=== PATIENT | male | born 1955 | race Caucasian/White ===

== ENCOUNTER 2018-02-22 14:51 | Emergency (ER) | payer OTHER, SELFPAY ==
[2018-02-22 14:52] VITALS: BP 146/95; PULSE 96; RESP 17; TEMP 36.5; O2SAT 100; BMI 25.2
--- NOTE | 2018-02-22 15:16 | CT_ITS ---
STUDY: CT ABDOMEN AND PELVIS WITHOUT CONTRAST REASON FOR EXAM: Male, 62 years old. Right lower quadrant pain. History of kidney stones. RADIATION DOSAGE (If Supplied By Facility): CTDIvol = ( 9.15 ) mGy, DLP = ( 486.78 ) mGycm TECHNIQUE: Transaxial images were obtained from the dome of the diaphragm to the symphysis pubis without oral contrast, and without intravenous contrast. Sagittal and coronal images were reconstructed. Individualized dose optimization techniques were used for this CT. COMPARISON: Comparison is made with prior study dated December 08, 2016. FINDINGS: The visualized lung bases are unremarkable. The visualized portions of the heart are within normal limits. Normal liver. Normal gallbladder and extrahepatic biliary system. Normal spleen. Normal pancreas. Normal bilateral adrenal glands. Mild degree of right hydronephrosis due to a recently passed 2 mm calculus at the base of the right side of the urinary bladder. This is in keeping with a recently passed calculus. Normal left kidney. Normal visualized stomach. Normal small intestine. Normal colon. There are surgical clips in the region of the appendix consistent with a prior appendectomy. Normal abdominal aorta. Normal inferior vena cava. Normal retroperitoneum. Normal urinary bladder. There is a small umbilical hernia containing fat. Small bilateral inguinal hernias containing fat. Normal osseous structures. CT/Abdomen/Pelvis without Cont IMPRESSION: Findings suggestive of a recently passed 2 mm calculus from the right ureter. The calculus is at the base of the bladder on the right side. Electronically Signed: Donald Parker MD at 15:54 EST Tel [phone], Service support ,
[2018-02-22 15:18] LABS: Absolute Lymphocyte Count 1.82 X10^3/ul (0.83-4.51); Absolute Neutrophil Count 6.3 X10^3/uL (2.0-7.7); Basophil# 0.08 X10^3/uL; Basophil% 0.9 % (0-1); Eosinophil# 0.06 X10^3/uL; Eosinophils% 0.7 % (0-5); Hematocrit 44.5 % (40-54); Hemoglobin 14.4 g/dl (13.0-16.5); Lymphocyte # 1.82 X10^3/ul (4.0); Lymphocyte % 20.4 % (19-41); Mean Corp Hgb Conc 32.4 g/gl (32-36); Mean Corpuscular Hgb 28.9 pg (27.0-32.0); Mean Corpuscular Volume 89.2 fL (80-94); Mean Platelet Vol. 9.7 fl (6.2-12.0); Monocyte# 0.65 X10^3/uL; Monocyte% 7.3 % (0-10); Neutrophil # 6.29 X10^3/uL (2.7-7.7); Neutrophil % 70.6 % (47-70); Platelet Count 294 K/mm3 (150-450); RBC Distribution Width SD 42.4 fl (35.1-43.9); Red Blood Count 4.99 M/mm3 (4.6-6.2); White Blood Count 8.9 K/mm3 (4.4-11.0)
[2018-02-22 15:19] LABS: POSITIVE COUNT NO; POSITIVE DIFFERENTIAL NO; POSITIVE MORPHOLOGY NO
[2018-02-22] MEDS: Morphine 4 MG/ML Syringe IV (15:20)
[2018-02-22] MEDS: Ondansetron 4 MG/2 ML Vial IV (15:20)
[2018-02-22] MEDS: 0.9% Normal Saline 1,000 ML 125 ML IV (15:20)
[2018-02-22] MEDS: Ketorolac 30 MG/ML Syringe IV (15:20)
[2018-02-22 15:31] LABS: Anion Gap 10 (5-15); BUN 14 mg/dL (7-18); Calcium,Total 8.3 mg/dL (8.5-10.1); Chloride 105 mmol/L (98-107); EST Glomerular Filtration Rate 55 mL/min (>60); Est Glom Filt Rate - Afr Amer 66 mL/min (>60); Estimated Creatinine Clearance 62.62 ml/min; Glucose 147 mg/dL (74-106); Potassium 3.5 mmol/L (3.5-5.1); Sodium Level 140 mmol/L (136-145)
--- NOTE | 2018-02-22 16:22 | ED.DCSUM_ITS ---
- ER Visit Summary Date of Service: 02/22/18 Chief Complaint: [Right lower quadrant pain] History of Present Illness: The patient is a 62 M [presents to the emergency department complaint of pain in his right lower abdomen and started around noon. Patient states that, came on gradually and progressively worsened. Patient now complains of pain is 8 out of 10. Patient denies any nausea or vomiting. He denies urinary symptoms. He denies any fever. Patient states the pain reminds him of the last time he passed a kidney stone.] Physical Examination: [HEENT-PERRLA, EOMI. Cranial nerves II through XII grossly intact. TMs clear. Mucous membranes moist. No adenopathy. Cardiovascular-regular rate and rhythm without murmur or ectopy Lungs-clear to auscultation, chest wall stable without crepitus or subcu emphysema Abdomen-normoactive bowel sounds, soft. Patient does have tenderness palpation over right lower quadrant with some guarding. Patient has some mild CVA tenderness on the right. There is no rebound, rigidity, or perineal signs. Extremities-intact ?4, normal range of motion, normal pulses, atraumatic] Test Results: [CBC with differential obtained showed a white blood cell count of 8.9, hemoglobin 14, hematocrit 44, platelet 294. Chemistries unremarkable. CT flank obtained showed a 2 mm stone in the base of the bladder that is suspected to have been passed from the right ureter as there is a mild hydroureter present.] Urinalysis was normal. Emergency Department Course and Treatment: Patient was medicated with Toradol, morphine, and Zofran and had good pain relief. [] Treatment Plan: [Patient will be given urine strainers and a prescription for Fortine. Patient advised to return if worsening pain, vomiting, or condition should worsen anyway.] Disposition: [Discharged home in stable condition] Impression: [Kidney stone with colic] This note was generated with [employer] dictation software. It may contain incorrect words, spelling, and punctuation that were not noted in review of the chart prior to signing ED Disposition - Plan for ED Patient: Chief Complaint: Abd Pain Instructions: ED Stone Renal W Colic Prescriptions: Hydrocodone Bitart/Apap 5-325 [Fortine 5MG-325MG] 1 tab PO Q4H PRN PRN 2 Days #10 tab PRN Reason: Pain Referrals: Jose Cuadra MD [Primary Care Provider] - Jac Samuels MD [STAFF PHYSICIAN] - As Needed
--- NOTE | 2018-02-22 16:25 | DCINST.ED_ITS ---
ED Disposition - Plan for ED Patient: Chief Complaint: Abd Pain Instructions: ED Stone Renal W Colic Prescriptions: Hydrocodone Bitart/Apap 5-325 [[place] 5MG-325MG] 1 tab PO Q4H PRN PRN 2 Days #10 tab PRN Reason: Pain Referrals: Jose Cuadra MD [Primary Care Provider] - Jac Samuels MD [STAFF PHYSICIAN] - As Needed
[2018-02-22 16:53] LABS: Bacteria 0 SEEN /hpf (None Seen); Mucous, Urine 0 SEEN /hpf (<or=2+); Red Blood Cells-Urine 0 SEEN /hpf (0-5); Squamous Epithelial Cells - UA 0 SEEN /hpf (0-5); White Blood Cells 0 SEEN /hpf (0-5)
--- NOTE | 2018-02-22 17:01 | ED.RN ---
pt pain much improved. pt rates pain at 2
[2018-02-22 17:04] LABS: Color, Urine Yellow (Yellow); Glucose, Dipstick Normal (Normal); Ketone-Dipstick Negative (Negative); Leukocyte Esterase-Dipstick Negative /ul (Negative); Nitrite-Dipstick Negative (Negative); Occult Blood-Urine 50 /ul (Negative); Protein-Dipstick Negative (Negative); Urine Bilirubin Dipstick Negative (Negative); Urine Clarity Clear (Clear); Urine Urobilinogen Normal (Normal)
[2018-02-22 17:32] VITALS: BP 136/84; PULSE 84; RESP 16; O2SAT 98
== END 2018-02-22 17:32 | disposition home or self-care (01) ==
PROVIDERS: Emergency Provider Emergency Medicine; Family Provider Family Medicine; PCP Family Medicine
DX: N20.0 Calculus of kidney (principal); Z87.442 Personal history of urinary calculi
CPT/HCPCS: 74176; 80048; 81001; 85025; 96361; 96374; 96375; 99283; J7030; A4216; J2405

== ENCOUNTER → 2018-03-06 08:09 | Outpatient (CLI) | payer OTHER, SELFPAY ==
[2018-02-22 14:52] VITALS: BMI 25.2
[2018-03-06 10:05] LABS: Hematocrit 45.9 % (40-54); Hemoglobin 14.6 g/dl (13.0-16.5); Mean Corp Hgb Conc 31.8 g/gl (32-36); Mean Corpuscular Hgb 28.3 pg (27.0-32.0); Mean Corpuscular Volume 89.1 fL (80-94); Mean Platelet Vol. 10.1 fl (6.2-12.0); Platelet Count 276 K/mm3 (150-450); RBC Distribution Width CV 13.1 % (11.6-14.6); RBC Distribution Width SD 42.7 fl (35.1-43.9); Red Blood Count 5.15 M/mm3 (4.6-6.2); White Blood Count 6.6 K/mm3 (4.4-11.0)
[2018-03-06 10:08] LABS: Scan Indicated on CBC? Y/N NO
[2018-03-06 10:16] LABS: Anion Gap 6 (5-15); BUN 18 mg/dL (7-18); BUN/Creat Ratio 14.1 RATIO (10-20); Calcium,Total 8.8 mg/dL (8.5-10.1); Chloride 106 mmol/L (98-107); Cholesterol 166 mg/dL (200); Creatinine, Serum 1.28 mg/dL (0.70-1.30); EST Glomerular Filtration Rate 61 mL/min (>60); Est Glom Filt Rate - Afr Amer 73 mL/min (>60); Glucose 103 mg/dL (74-106); High Density Lipoprotein 41 mg/dL; Sodium Level 139 mmol/L (136-145); Triglycerides 214 mg/dL; Very Low Density Lipoprotein 43 mg/dL (5-40)
== END ==
PROVIDERS: Family Provider Family Medicine; PCP Family Medicine; Referring Provider Family Medicine; Visit Provider Family Medicine
DX: I10 Essential (primary) hypertension (principal); E78.5 Hyperlipidemia, unspecified; Z12.5 Encounter for screening for malignant neoplasm of prostate
CPT/HCPCS: 36415; 80048; 80061; 84153; 85027; G0103

== ENCOUNTER → 2019-06-15 07:45 | Outpatient (CLI) | payer OTHER, SELFPAY ==
[2019-06-15 11:28] LABS: ALB/GLOB Ratio 1.1 RATIO (0.9-2.4); AST(SGOT) 15 U/L (15-37); Alanine Aminotransfer ALT/SGPT 23 U/L (16-61); Albumin, Serum 3.8 g/dL (3.2-5.0); Alkaline Phosphatase 90 U/L (45-117); Anion Gap 6 (5-15); BUN 16 mg/dL (7-18); BUN/Creat Ratio 12.7 RATIO (10-20); Calcium,Total 8.8 mg/dL (8.5-10.1); Chloride 105 mmol/L (98-107); Cholesterol 168 mg/dL (200); Creatinine, Serum 1.26 mg/dL (0.70-1.30); EST Glomerular Filtration Rate 62 mL/min (>60); Est Glom Filt Rate - Afr Amer 75 mL/min (>60); Globulin 3.4 g/dL (2.2-4.2); Glucose 100 mg/dL (74-106); High Density Lipoprotein 46 mg/dL; Potassium 3.7 mmol/L (3.5-5.1); Protein, Total 7.2 g/dL (6.4-8.2); Sodium Level 139 mmol/L (136-145); Triglycerides 204 mg/dL; Uric Acid 5.8 mg/dL (3.5-7.2); Very Low Density Lipoprotein 41 mg/dL (5-40)
== END ==
PROVIDERS: PCP Family Medicine; Referring Provider Family Medicine; Visit Provider Family Medicine
DX: E78.5 Hyperlipidemia, unspecified (principal); M10.9 Gout, unspecified; Z12.5 Encounter for screening for malignant neoplasm of prostate
CPT/HCPCS: 36415; 80053; 80061; 84153; 84550; G0103

== ENCOUNTER 2019-06-15 16:25 | Emergency (ER) | payer OTHER, SELFPAY ==
[2019-06-15 16:26] VITALS: BP 146/91; PULSE 85; RESP 18; TEMP 35.8; O2SAT 99; BMI 24.4
[2019-06-15 17:20] VITALS: BP 143/91; PULSE 71; RESP 18; O2SAT 98
--- NOTE | 2019-06-15 17:46 | CT_ITS ---
STUDY: CT BRAIN WITHOUT CONTRAST REASON FOR EXAM: Male, 63 years old. Paresthesias in the left face and left arm since 1430 hours today. RADIATION DOSAGE (If Supplied By Facility): CTDIvol = ( 44.99 ) mGy, DLP = ( 796.11 ) mGycm TECHNIQUE: Transaxial CT imaging of the brain was performed without administration of intravenous contrast material. Individualized dose optimization techniques were used for this CT. COMPARISON: No relevant priors. FINDINGS: Normal soft tissue structures. Normal calvarium. Normal size ventricles and extra-axial spaces for the patient''s age. Normal white matter tracts of the cerebral hemispheres. Normal basal ganglia and thalami. Normal brainstem. Normal cerebellum. There is no intracranial hemorrhage. There are no findings of an acute ischemic infarction. Normal visualized paranasal sinuses. CT/Brain/Head without Contrast IMPRESSION: No evidence of acute intracranial or calvarial abnormality. If there is continued concern for acute stroke, MRI is recommended. Electronically Signed: Francois Millan DO at 18:51 EST Tel [phone], Service support ,
[2019-06-15 18:12] LABS: Absolute Lymphocyte Count 1.87 X10^3/uL (0.83-4.51); Absolute Neutrophil Count 4.1 X10^3/uL (2.0-7.7); Basophil# 0.09 X10^3/uL; Basophil% 1.3 % (0-1); Eosinophil# 0.12 X10^3/uL; Eosinophils% 1.7 % (0-5); Hematocrit 44.6 % (40-54); Hemoglobin 14.5 g/dL (13.0-16.5); Lymphocyte # 1.87 X10^3/ul (4.0); Lymphocyte % 27.2 % (19-41); Mean Corp Hgb Conc 32.5 g/dL (32-36); Mean Corpuscular Hgb 28.7 pg (27.0-32.0); Mean Corpuscular Volume 88.3 fL (80-94); Mean Platelet Vol. 9.6 fl (6.2-12.0); Monocyte# 0.71 X10^3/uL; Monocyte% 10.3 % (0-10); NRBC Flagged by Analyzer 0 % (0-5); Neutrophil # 4.08 X10^3/uL (2.7-7.7); Neutrophil % 59.4 % (47-70); Platelet Count 235 K/mm3 (150-450); RBC Distribution Width CV 12.4 % (11.6-14.6); RBC Distribution Width SD 40.2 fl (35.1-43.9); Red Blood Count 5.05 M/mm3 (4.6-6.2); White Blood Count 6.9 K/mm3 (4.4-11.0)
[2019-06-15 18:31] VITALS: BP 129/80; PULSE 68; RESP 18; O2SAT 98
[2019-06-15 18:31] LABS: ALB/GLOB Ratio 1.1 RATIO (0.9-2.4); AST(SGOT) 12 U/L (15-37); Alanine Aminotransfer ALT/SGPT 24 U/L (16-61); Albumin, Serum 3.7 g/dL (3.2-5.0); Alkaline Phosphatase 91 U/L (45-117); Anion Gap 5 (5-15); BUN 17 mg/dL (7-18); BUN/Creat Ratio 14.3 RATIO (10-20); Calcium,Total 8.6 mg/dL (8.5-10.1); Chloride 107 mmol/L (98-107); Creatinine, Serum 1.19 mg/dL (0.70-1.30); EST Glomerular Filtration Rate 66 mL/min (>60); Est Glom Filt Rate - Afr Amer 80 mL/min (>60); Estimated Creatinine Clearance 72.74 ml/min; Globulin 3.3 g/dL (2.2-4.2); Glucose 89 mg/dL (74-106); Potassium 4.1 mmol/L (3.5-5.1); Sodium Level 140 mmol/L (136-145)
--- NOTE | 2019-06-15 19:28 | ED.VISSUMM ---
- ER Visit Summary Date of Service: 06/15/19 Chief Complaint: Difficulty swallowing and paresthesias of his left face and arm History of Present Illness: The patient is a 63 M who presents with difficulty swallowing as well as paresthesias in his left face and left arm that began today. Patient states it is been constant since he woke up today. Patient admits to some tingling in his left face and left upper extremity. Patient states he feels like he is having difficulty swallowing. Patient denies any difficulty speaking. Patient denies any difficulty breathing. Patient states she laid down for a nap at approximately 1300 hrs. today and when he woke up he had the paresthesias in his face and arm. Patient denies any headaches. Patient denies any chest pain or shortness of breath. Patient states he does have a history of herniated cervical disks. Physical Examination: Vital signs are stable. Patient is afebrile. Patient is in no acute distress. Oral mucosa is pink and moist. Neck is supple. Trachea is midline. Is no JVD. Heart was regular rate and rhythm. Lungs are clear and equal bilaterally. Abdomen is soft. Bowel sounds are normal. There is no tenderness. Cranial nerves II through XII are intact. There are no focal motor or sensory deficits noted. Patient reports the sensation on the left side of his face and left upper extremity are similar to the sensation on the right side of his face and right upper extremity. Test Results: CBC, comprehensive metabolic profile, troponin were obtained and were all within normal limits. CT scan of the brain was obtained. There is no acute intracranial abnormality. This was interpreted by the radiologist and reviewed by myself. Emergency Department Course and Treatment: Patient was feeling better on reevaluation. Patient states his paresthesias were improving. Patient states his swallowing is improving. Patient was advised of his results. Patient was instructed to follow-up with his primary care physician in 5 to 7 days. Patient understood and was agreeable with the plan. All questions were answered. Disposition: Discharge home Impression: Paresthesias This note was generated with [employer] dictation software. It may contain incorrect words, spelling, and punctuation that were not noted in review of the chart prior to signing ED Disposition - Plan for ED Patient: Disposition: Home or Assisted Living Diagnosis: Paresthesias Instructions: Paraesthesias Referrals: Terrance Horn MD [Primary Care Provider] - 3-5 Days
[2019-06-15 20:00] VITALS: BP 124/84; PULSE 72; RESP 18; O2SAT 97
== END 2019-06-15 20:18 | disposition home or self-care (01) ==
PROVIDERS: Emergency Provider Emergency Medicine; PCP Family Medicine
DX: R20.2 Paresthesia of skin (principal); I10 Essential (primary) hypertension
CPT/HCPCS: 70450; 80053; 84484; 85025; 99284

== ENCOUNTER → 2019-09-17 | Outpatient (CLI) | payer OTHER, SELFPAY ==
[2019-09-08 13:02] VITALS: BMI 24.4
== END | disposition home or self-care (01) ==
LOC: LABSPEC 15:24
PROVIDERS: PCP Family Medicine; Referring Provider Family Medicine; Visit Provider Family Medicine
DX: S81.852A Open bite, left lower leg, initial encounter (principal)
CPT/HCPCS: 87070; 87077; 87186; 87205

== ENCOUNTER → 2020-08-18 08:19 | Outpatient (CLI) | payer OTHER, SELFPAY ==
[2019-09-08 13:02] VITALS: BMI 24.4
[2020-08-18 10:27] LABS: Anion Gap 4 (5-15); BUN 16 mg/dL (7-18); Chloride 107 mmol/L (98-107); Cholesterol 167 mg/dL (200); Creatinine, Serum 1.33 mg/dL (0.70-1.30); EST Glomerular Filtration Rate 58 mL/min (>60); Est Glom Filt Rate - Afr Amer 70 mL/min (>60); Glucose 134 mg/dL (74-106); High Density Lipoprotein 44 mg/dL; PSA,Total - Annual Screen 1.93 ng/mL (0.00-4.00); Potassium 3.9 mmol/L (3.5-5.1); Sodium Level 138 mmol/L (136-145); Triglycerides 286 mg/dL; Very Low Density Lipoprotein 57 mg/dL (5-40)
[2020-08-18 11:14] LABS: Uric Acid 6.8 mg/dL (3.5-7.2)
== END ==
PROVIDERS: Nurse Practitioner Family; PCP Family Medicine; Referring Provider Family Medicine; Visit Provider Family Medicine
DX: I10 Essential (primary) hypertension (principal); M10.9 Gout, unspecified; Z12.5 Encounter for screening for malignant neoplasm of prostate
CPT/HCPCS: 36415; 80048; 80061; 84153; 84550; G0103

== ENCOUNTER → 2020-11-03 08:20 | Outpatient (CLI) | payer OTHER, SELFPAY ==
[2020-10-31 10:55] VITALS: BMI 24.4
--- NOTE | 2020-11-03 08:33 | RAD_ITS ---
STUDY: X-RAY CHEST REASON FOR EXAM: Male, 64 years old. Chest pain TECHNIQUE: PA and lateral views of the chest. COMPARISON: Comparison is made with prior study dated 03/29/2017. FINDINGS: Hyperinflation. The lungs are clear. There is no demonstrated pleural abnormality. Normal size heart. Normal mediastinum and leighann. Normal visualized pulmonary arteries. There is atherosclerotic calcification of the aortic arch with tortuosity. Normal visualized thoracic spine. Normal visualized ribs, clavicles, and shoulders. There is no demonstrated abnormality of the visualized soft tissue structures of the upper abdomen. RAD/Chest PA and Lateral IMPRESSION: Hyperinflation. Electronically Signed: Donald Parker MD at 21:20 EDT , Service support ,
[2020-11-03 09:37] LABS: Theophylline (Aminophylline) < 2.0 ug/mL (10.0-20.0)
[2020-11-03 09:39] LABS: Anion Gap 6 (5-15); BUN 18 mg/dL (7-18); BUN/Creat Ratio 12.2 RATIO (10-20); Chloride 106 mmol/L (98-107); Creatinine, Serum 1.47 mg/dL (0.70-1.30); EST Glomerular Filtration Rate 51 mL/min (>60); Est Glom Filt Rate - Afr Amer 62 mL/min (>60); Glucose 99 mg/dL (74-106); Potassium 3.8 mmol/L (3.5-5.1); Sodium Level 139 mmol/L (136-145); T4 Total, Thyroxin 7.1 ug/dL (4.5-12.1)
== END ==
PROVIDERS: PCP Family Medicine; Referring Provider Internal Medicine Cardiovascular Disease; Visit Provider Internal Medicine Cardiovascular Disease
DX: I47.1 Supraventricular tachycardia (principal); I10 Essential (primary) hypertension; E78.5 Hyperlipidemia, unspecified; R07.89 Other chest pain; R00.2 Palpitations
CPT/HCPCS: 36415; 71046; 80048; 80198; 84436

== ENCOUNTER → 2020-11-13 07:10 | Outpatient (CLI) | payer OTHER, SELFPAY ==
[2020-10-31 10:55] VITALS: BMI 24.4
--- NOTE | 2020-11-13 07:16 | ECHOCS_ITS ---
Reason For Study: CHEST PAIN Procedure This was a 2D Doppler, Color Flow transthoracic echocardiogram. The study was technically difficult. Contrast injection was performed. Exam performed in department. Left Ventricle Normal LV size. Left ventricular systolic function is normal. The estimated ejection fraction is 60 %. No evidence for diastolic dysfunction. No regional wall motion abnormalities noted. Right Ventricle Normal RV size. Normal systolic function. Atria Normal left atrium. Normal right atrium. No doppler evidence for ASD. Mitral Valve There is no mitral annular calcification. Normal mitral valve. Mild (1+) mitral valve insufficiency. Tricuspid Valve Normal tricuspid valve. Mild tricuspid valve insufficiency. Right ventricular systolic pressure estimated to be 31 mmHg. Aortic Valve Trisinus/trileaflet aortic valve. Mild focal aortic valve calcification. Trivial aortic valve insufficiency. Pulmonic Valve The pulmonic valve is not well visualized. Trivial pulmonic valve insufficiency. Great Vessels Normal sized aortic root. Pericardium/Pleural No pericardial effusion. Medication Diluted definity 5ml given slow IV push to enhance endocardial definition. MMode/2D Measurements & Calculations LVIDd: 4.2 cm IVSd: 0.82 cm Ao root diam: 3.8 cm LVIDs: 2.9 cm LVPWd: 0.84 cm RVDd: 3.6 cm FS: 31.0 % LAV(MOD-bp): 32.3 ml LVAd ap4: 31.7 cm2 SV(MOD-sp4): 62.3 ml LAV(MOD-bp) Indexed: 15.5 ml/m2 LVLd ap4: 7.9 cm LAV(MOD-sp2): 34.6 ml EDV(MOD-sp4): 101.5 ml LAV(MOD-sp4): 29.3 ml EDV(sp4-el): 107.4 ml LVAs ap4: 17.9 cm2 LVLs ap4: 6.5 cm ESV(MOD-sp4): 39.2 ml ESV(sp4-el): 41.7 ml EF(MOD-sp4): 61.4 % EF(sp4-el): 61.1 % SV(sp4-el): 65.7 ml LA A4 area: 12.5 cm2 LA dimension(2D): 3.6 cm RA A4 area: 12.7 cm2 Time Measurements MV dec time: 0.25 sec Doppler Measurements & Calculations MV E max danny: 68.0 cm/sec Lat Peak E' Danny: 11.5 cm/sec Med Peak E' Danny: 8.9 cm/sec MV A max danny: 81.0 cm/sec E/E' lat: 5.9 E/E' med: 7.6 MV E/A: 0.84 Ao V2 max: 148.4 cm/sec AI max danny: 312.4 cm/sec LV V1 max: 113.7 cm/sec Ao max P.8 mmHg AI max P.0 mmHg LV V1 max P.2 mmHg AI dec slope: 166.6 cm/sec2 AI P1/2t: 549.4 msec PA V2 max: 102.2 cm/sec PI end-d danny: 97.9 cm/sec TR max danny: 263.5 cm/sec TR max P.8 mmHg ECHO/Echo Complete W/ Contrast Interpretation Summary The study was technically difficult. Contrast injection was performed. Left ventricular systolic function is normal. The estimated ejection fraction is 60 %. Mild (1+) mitral valve insufficiency. Mild tricuspid valve insufficiency. Mild focal aortic valve calcification. Trivial aortic valve insufficiency. Trivial pulmonic valve insufficiency. Right ventricular systolic pressure estimated to be 31 mmHg. No evidence for diastolic dysfunction. Ordering Physician: Cash Murguia Referring Physician: ROMEO WISDOM Performed By: Bella Martinez RDCS
--- NOTE | 2020-11-13 20:17 | STRESSREP ---
Stress Test Report Date: 11-13-2020 Procedure: Exercise tolerance test/imaging study Indications: Chest pain; cardiac dysrhythmia Consent: Per the patient Procedure: The patient exercised on a Alexandr protocol for 6 minutes and 30 seconds completing Stage II and 30 seconds of Stage III achieving a peak heart rate of 160 bpm (101% predicted maximal heart rate) with a peak blood pressure 154/78 mmHg and a peak MET capacity of 8 METs. The baseline ECG demonstrated normal sinus rhythm. The peak exercise ECG demonstrated somatic/motion artifact with no obvious ECG changes. There was an isolated PAC during recovery. The functional capacity was considered average. There was no complaint of chest discomfort during exercise or recovery. The examination was discontinued secondary to fatigue. Impression: 1. Technically adequate (percent predicted maximal heart rate greater than 85%) exercise tolerance test 2. Peak exercise ECG with somatic/motion artifact with no obvious ECG changes 3. There was an isolated PVC during recovery 4. Nuclear images pending Myocardial perfusion imaging study: Technique: The patient was injected with 10.8 mCi of technetium 99m Cardiolite and subsequently rest SPECT Cardiolite nuclear imaging was obtained in the horizontal long, vertical long, and short axis views. The patient exercised on a Alexandr protocol for 6 minutes and 30 seconds completing Stage II and 30 seconds of Stage III achieving a peak heart rate of 160 bpm (101% predicted maximal heart rate) with a peak blood pressure 154/78 mmHg and a peak MET capacity of 8 METs. The patient was injected with 32.4 mCi of technetium 99m Cardiolite and subsequently stress SPECT Cardiolite nuclear imaging was obtained in the horizontal long, vertical long, and short axis views. A gated Cardiolite study at peak stress was obtained. Interpretation: Rest and stress SPECT Cardiolite nuclear imaging status post realignment, normalization, and attenuation correction, demonstrates demonstrate a small area of diminished tracer uptake in the distal inferior/inferoapical segments status post stress. There is end systolic thickening and brightening. The gated Cardiolite study demonstrates myocardial thickening and inward wall motion. The reported LVEF is 77%. Impression: 1. Rest and stress SPECT Cardiolite nuclear imaging demonstrate myocardial perfusion changes potentially compatible with a small area of stress-induced myocardial ischemia in portions of the distal inferior/inferoapical segments although an element of shifting soft tissue attenuation/artifact cannot necessarily be excluded. 2. The gated Cardiolite study reports an LVEF of 77-%. This note was generated with [employer] software. It may contain incorrect words, spelling, and punctuation that were not noted in checking the note before signing. 0
== END ==
PROVIDERS: PCP Family Medicine; Referring Provider Internal Medicine Cardiovascular Disease; Visit Provider Internal Medicine Cardiovascular Disease
DX: I47.1 Supraventricular tachycardia (principal); I10 Essential (primary) hypertension; E78.5 Hyperlipidemia, unspecified; R07.89 Other chest pain; R00.2 Palpitations
CPT/HCPCS: 78452; 93017; 93306; A9500; Q9957; A4216; C8929; J3490

== ENCOUNTER 2020-12-03 06:55 | Day surgery (SDC) | payer OTHER, SELFPAY ==
[2020-10-31 10:55] VITALS: BMI 24.4
[2020-11-25 10:17] LABS: Hematocrit 44.9 % (40-54); Hemoglobin 14.5 g/dL (13.0-16.5); Mean Corp Hgb Conc 32.3 g/dL (32-36); Mean Corpuscular Hgb 28.8 pg (27.0-32.0); Mean Corpuscular Volume 89.1 fL (80-94); Mean Platelet Vol. 10.1 fl (6.2-12.0); Platelet Count 227 K/mm3 (150-450); RBC Distribution Width CV 12.5 % (11.6-14.6); RBC Distribution Width SD 41.1 fl (35.1-43.9); Red Blood Count 5.04 M/mm3 (4.6-6.2); White Blood Count 6.2 K/mm3 (4.4-11.0)
[2020-11-25 10:22] LABS: International Normalized Ratio 1.1; Prothrombin Time (Protime)PT. 13.2 SECONDS (11.7-14.9)
[2020-11-25 10:23] LABS: Partial Thromboplast Time 30.1 Seconds (24.1-36.2)
[2020-11-25 10:31] LABS: Anion Gap 4 (5-15); BUN 18 mg/dL (7-18); BUN/Creat Ratio 12.9 RATIO (10-20); Calcium,Total 8.9 mg/dL (8.5-10.1); Chloride 106 mmol/L (98-107); Creatinine, Serum 1.39 mg/dL (0.70-1.30); EST Glomerular Filtration Rate 55 mL/min (>60); Est Glom Filt Rate - Afr Amer 66 mL/min (>60); Glucose 108 mg/dL (74-106); Sodium Level 137 mmol/L (136-145)
[2020-12-02 07:24] VITALS: BMI 24.4
--- NOTE | 2020-12-02 20:38 | PCM.HP.BLA ---
History and Physical Date of Admission: 12/03/20 [facility] [address] [place] [address] [phone] OFFICE VISITDate of Service: 10/31/20 MR#:[id number]:[id number]: WOODY FAM PRep #:[id number]:[id number] Provider:Dr. Cash Murguia, TERRIEge/Sex: 64/M [facility] HPI History of Present Illness Details: This is a 64-year-old white male who presents today for outpatient cardiovascular consultation based on a combination of concerns of chest pain and palpitations. He was previously evaluated, with his last outpatient visit being on 04-20-2017, for concerns of an atypical chest discomfort in the past. In the past he had undergone noninvasive studies with a transthoracic echocardiogram and an exercise tolerance test (2013). The results are noted below. He was noted during his exercise tolerance test to have an occasional PVC pretest and a rare PVC in recovery. He also had a Holter monitor in 2013 which did demonstrate sinus rhythm with PACs and PVCs. He had no cardiac tacky dysrhythmias reported at that time. He notes since his last visit he has not undergone any additional cardiovascular evaluation until recently. Recently he was noting a combination of chest discomfort and palpitations. He states this occurred after his COVID-19 vaccination dose #2 ([employer]). Thus he was evaluated by his PCP. It appears that in August of this year he had an ECG in his PCPs office that demonstrated sinus bradycardia. This led to an outpatient ambulatory event monitor her per his PCP that lasted from September 03 of this year to September 09 of this year. Based upon their report he was noted to have predominantly sinus rhythm, there were PACs and PVCs, he had an ectopic atrial run, there was report of atrial tachycardia with the longest run being 12 beats in duration and the fastest run being 10 beats in duration averaging 145 bpm up to 177 bpm. He is not sure he can correlate any symptoms, although, per the report it stated that it appeared to be a correlation with the reporting with the ectopy and dysrhythmia. He notes that after the monitor was finished he states everything seemed to calm down. During that time he elected to treat himself once again with a PPI based upon his history of gastrointestinal disease. He notes after taking that for approximately 14 days he felt better. Everything calm down. He states after being off of that he notes his chest is uncomfortable again. He describes a vague chest discomfort as he passes his hand over his chest. He does not believe it significantly changes with activity. There has been no obvious nausea, emesis, or diaphoresis. He has not noted a significant change in his respiratory status. He denies near syncope or syncope. Intake Vital Signs 10/31/20 10:55 Height 6 ft 1 in Weight: 185 lb BMI 24.4 BP 132/83 H Respiration 16 Pulse 86 Pulse Oximetry (%) 98 Intake Visit Reasons: Palpitations/Ref. [place] Allergies lisinopril Adverse Reaction (Severe, Verified 09/08/19 12:35) Unknown Medications amlodipine 5 mg PO DAILY 06/15/19 [History Confirmed 10/31/20] olmesartan 40 mg tablet 40 mg PO DAILY tab 10/31/20 [History Confirmed 10/31/20] Ejection fraction %: 55 to 59 [facility] Medical History Essential hypertension Hyperlipidemia Surgical History History of hernia repair History of vitrectomy Family History Father CVA (cerebral vascular accident) Mother CAD (coronary artery disease) Hypertension Social History Smoking Status: Never smoker ROS Const Const: Positive for other (walks and ride bike 3-4 x week w/o difficulty); Negative for fatigue, weakness, headache(s), frequent falls, difficulty sleeping or excessive sweating Eyes Eyes: Negative for loss of peripheral vision, transient loss of vision, blurry vision, double vision or tunnel vision ENT ENT: Negative for headache(s), dizziness, Nosebleed/epistaxis or balance problems Cardio Chest Pain: Yes Character: tightness Location: mid sternal Palpitations: No Edema: None Muscle aches with walking: None Resp Respiratory: Negative for SOB with activity, SOB at rest, SOB orthopnea\SOB lying down, Cough or paroxysmal nocturnal dyspnea GI GI: Positive for heartburn (used 14 days of omeprazole); Negative nausea, vomiting or black,tarry stools : Negative for hematuria Musc Musc: Negative for muscle aches/ myalgia, muscle weakness, joint pain or balance problems Skin Skin: Negative non-healing lesions, rash or unusual bruising Neuro Neuro: Negative for dizziness, lightheadedness, near syncope, syncope, frequent falls, headache(s), weakness, blurry vision, double vision or lack of coordination Trino Hematologic/Lymphatic: Negative for easy bleeding or easy bruising Endo Endo: Negative for fatigue, excessive sweating or increased thirst/drinking Psych Psych: Negative for anxiety or depression Allergy Allergy/Immunology: Negative for hives and Negative for rash Cardiology Exam Const Appearance: cooperative, healthy appearing, comfortable, no acute distress, well developed and well groomed Nutritional Appearance: average body habitus Orientation: awake Head Head: normal to inspection, normocephalic and atraumatic Ears: hearing grossly normal bilaterally Nose: external nose normal Face and Sinus: face symmetric Eyes Eyelids: eyelids normal Conjunctivae: conjunctivae normal Pupils: PERRL EOM: EOM intact bilaterally Neck Neck: normal visual inspection and full ROM Carotids: normal carotid upstroke Chest Chest inspection: normal inspection of the chest, symmetric chest movement and normal respiratory effort Auscultation: Bilateral: Clear to Auscultation Cardio Palpation: normal PMI Rate: regular rate Rhythm: regular rhythm Heart sounds: S1 normal and S2 normal GI GI: normal to inspection, soft and bowel sounds present Neuro General: patient alert, patient awake, patient oriented x3 and moves all extremities Skin Skin: no rashes or lesions noted Extremities Pulses: Normal: Right Radial Pulse and Left Radial Pulse Lower Extremity Edema: None: Bilateral Musculoskel Musculoskeletal: joint tenderness Assessment and Plan Assessment and Plan (1) Paroxysmal atrial tachycardia: Status: Acute Orders: Orders: Basic Metabolic Profile (BMP) Today T4 Total, Thyroxin Today Echo Complete Today Nuclear Stress Test - Treadmil Today Chest PA and Lateral Today Theophylline (Aminophylline) Today Plan - Dr. Cash Murguia MD: At the present time he has been found to have evidence of his PACs and PVCs as well as what appears to be an underlying ectopic atrial rhythm/tachycardia (brief). At the moment he states he is not noticing any ongoing similar type symptoms. He has not had any near-syncope or syncope. It appears he did have laboratory studies performed at which time his potassium level was within normal range. It was noted during his laboratory studies that his glucose level is elevated. There are no thyroid studies for review. At the present time he will have a repeat fasting BMP to recheck his electrolytes as well as his glucose level. He will also be asked to have thyroid function studies performed. He will be asked to have an echocardiogram to evaluate his atrial anatomy as well as his ventricular anatomy with respect to wall motion and systolic function. He will continue his current antihypertensive therapy. He is not being immediately placed on other rate limiting therapy/antiarrhythmic therapy. This could change depending upon his clinical course and findings. (2) Hyperlipidemia: Status: Acute Qualifiers: Hyperlipidemia type: unspecified Qualified Code(s): E78.5 - Hyperlipidemia, unspecified; E78.5 - Hyperlipidemia, unspecified; E78.5 - Hyperlipidemia, unspecified Orders: Orders: Basic Metabolic Profile (BMP) Today T4 Total, Thyroxin Today Echo Complete Today Nuclear Stress Test - Treadmil Today Chest PA and Lateral Today Theophylline (Aminophylline) Today Plan - Dr. Cash Murguia MD: He does have a history of hyperlipidemia. He states he is following with his PCP for this. The present time he is not on lipid-lowering medication. (3) Essential hypertension: Status: Acute Orders: Orders: Basic Metabolic Profile (BMP) Today T4 Total, Thyroxin Today Echo Complete Today Nuclear Stress Test - Treadmil Today Chest PA and Lateral Today Theophylline (Aminophylline) Today Plan - Dr. Cash Murguia MD: His blood pressure appears to be reasonably well controlled on his current medications. (4) Chest tightness: Status: Acute Orders: Orders: Basic Metabolic Profile (BMP) Today T4 Total, Thyroxin Today Echo Complete Today Nuclear Stress Test - Treadmil Today Chest PA and Lateral Today Theophylline (Aminophylline) Today Plan - Dr. Cash Murguia MD: His chest discomfort is somewhat vague . At the present time based upon his cardiovascular risks and symptoms and other objective findings he will be asked to have a follow-up echocardiogram to look for any new left ventricular regional wall motion abnormalities that would be concerning as well as an exercise tolerance test/imaging study to reassess for any obvious evidence of stress-induced myocardial ischemia that would warrant further evaluation and care. The same time based upon his seemingly positive response to his PPI he may need to return to his hydrostatic tester for further GI evaluation as well as part of the etiology for his chest discomfort. (5) Pounding heartbeat: Status: Acute Orders: Orders: Basic Metabolic Profile (BMP) Today T4 Total, Thyroxin Today Echo Complete Today Nuclear Stress Test - Treadmil Today Chest PA and Lateral Today Theophylline (Aminophylline) Today Plan - Dr. Cash Murguia MD: Again he is not complaining of any ongoing palpitations at the moment. His findings are as noted above. He will continue evaluation and care as noted above. Plan Details Additional Comments: Thank you for allowing me to participate in the care of your patient. Please don't hesitate to call if any issues arise. This note was generated using a voice recognition system and there may be incorrect words, spelling or punctuation that were not noted when reviewing the office note prior to saving. Follow Up: 6 Months (PFM) Coding Level of Care Code Off vis,new,level 5 Diagnoses Paroxysmal atrial tachycardia I47.1 Hyperlipidemia E78.5; E78.5; E78.5 Hyperlipidemia type: unspecified Essential hypertension I10 Chest tightness R07.89 Pounding heartbeat R00.2 Coding Level of Care Code Off vis,new,level 5 Diagnoses Paroxysmal atrial tachycardia I47.1 Hyperlipidemia E78.5; E78.5; E78.5 Hyperlipidemia type: unspecified Essential hypertension I10 Chest tightness R07.89 Pounding heartbeat R00.2 Supplemental Info Supplemental Information Transthoracic echocardiogram: 02-15-2014 Interpretation Summary Left ventricular systolic function is normal. The estimated ejection fraction is 55 %. Apical false tendon noted. Trivial mitral valve insufficiency. Trivial tricuspid valve insufficiency. Trivial pulmonic valve insufficiency. Right ventricular systolic pressure estimated to be 24 mmHg. Transmitral doppler flow suggestive of impaired relaxation of left ventricle EXERCISE TOLERANCE TEST: 02-15-2014 The patient exercised on a Alexandr protocol for 9 minutes 30 seconds completing stage 3 and 30 seconds of stage 4 achieving a peak heart rate of 155 beats per minute (95% predicted maximum heart rate) with a peak blood pressure of 168/82 mmHg and a peak MET capacity of approximately 10 METS. The baseline ECG demonstrated sinus bradycardia. The peak exercise ECG demonstrated somatic/motion artifact with no obvious ECG changes. There was an occasional PVC pretest and a rare PVC in recovery. The functional capacity was considered good. There was no complaint of chest discomfort during exercise or recovery. The examination was discontinued secondary to leg discomfort. IMPRESSION: 1. Technically adequate (percent predicted maximum heart rate greater than 85%) exercise tolerance test. 2. Peak exercise ECG with somatic/motion artifact with no obvious ECG changes. 3. Occasional PVC pretest and rare PVC in recovery. 4. Nuclear images pending. MYOCARDIAL PERFUSION IMAGING STUDY: TECHNIQUE: The patient was injected with 11.5 mCi of Tc99m Cardiolite and subsequently rest SPECT Cardiolite nuclear imaging was obtained in the horizontal long, vertical long, and short axes views. The patient exercised on a Alexandr protocol for 9 minutes and 30 seconds achieving a peak heart rate of 155 beats per minute (95% predicted maximum heart rate) with a peak blood pressure of 168/82 mmHg and a peak MET capacity of 10 METS. The patient was injected with 34.2 mCi of Tc99m Cardiolite and subsequently stress SPECT Cardiolite nuclear imaging was obtained in the horizontal long, vertical long, and short axes views. A gated Cardiolite study at peak stress was obtained. INTERPRETATION: Rest and stress SPECT Cardiolite nuclear imaging demonstrate at rest extracardiac/hepatic and gastrointestinal tracer uptake near the inferior segments. This is less prominent following stress. There was notation of subtle decreased tracer uptake in portions of the basal inferoseptal and basal inferior segments without significant change. Otherwise, there appears to be relative uniform tracer uptake. There is end systolic thickening and brightening. The gated Cardiolite study demonstrates myocardial thickening and inward wall motion. The reported LVEF is 75%. The aforementioned images appear compatible with the effect of soft tissue attenuation/artifact with no myocardial perfusion changes considered diagnostic for stress induced myocardial ischemia. IMPRESSION: 1. Rest and stress SPECT Cardiolite nuclear imaging demonstrate myocardial perfusion changes appearing compatible with the effects of soft tissue attenuation/artifact with no myocardial perfusion changes considered diagnostic for stress induced myocardial ischemia or previous myocardial injury/infarction. 2. The gated Cardiolite study reports an LVEF of 75%. Labs: LDL Cholesterol 66 mg/dL (0-130) HDL Cholesterol 44 mg/dL (40-) Triglycerides 286 mg/dL (-199) H VLDL Cholesterol 57 mg/dL (5-40) H Diagnostics: Electrocardiogram Echocardiogram Stress Test NM Abdomen US Chest X-Ray Pulmonary: No Data to Display 10/31/20 2616<Electronically signed by Cash Murguia MD>Date Cash Murguia MD Cosigner Signature:Date (if applicable) CC: Dr. Terrance Horn MD ~ Addendum: The patient underwent further evaluation with transthoracic echocardiogram on and an exercise tolerance test/imaging study on . The results are as noted below. Interpretation Summary The study was technically difficult. Contrast injection was performed. Left ventricular systolic function is normal. The estimated ejection fraction is 60 %. Mild (1+) mitral valve insufficiency. Mild tricuspid valve insufficiency. Mild focal aortic valve calcification. Trivial aortic valve insufficiency. Trivial pulmonic valve insufficiency. Right ventricular systolic pressure estimated to be 31 mmHg. No evidence for diastolic dysfunction. Stress Test Report Date: 11-13-2020 Procedure: Exercise tolerance test/imaging study Indications: Chest pain; cardiac dysrhythmia Consent: Per the patient Procedure: The patient exercised on a Alexandr protocol for 6 minutes and 30 seconds completing Stage II and 30 seconds of Stage III achieving a peak heart rate of 160 bpm (101% predicted maximal heart rate) with a peak blood pressure 154/78 mmHg and a peak MET capacity of 8 METs. The baseline ECG demonstrated normal sinus rhythm. The peak exercise ECG demonstrated somatic/motion artifact with no obvious ECG changes. There was an isolated PAC during recovery. The functional capacity was considered average. There was no complaint of chest discomfort during exercise or recovery. The examination was discontinued secondary to fatigue. Impression: 1. Technically adequate (percent predicted maximal heart rate greater than 85%) exercise tolerance test 2. Peak exercise ECG with somatic/motion artifact with no obvious ECG changes 3. There was an isolated PVC during recovery 4. Nuclear images pending Myocardial perfusion imaging study: Technique: The patient was injected with 10.8 mCi of technetium 99m Cardiolite and subsequently rest SPECT Cardiolite nuclear imaging was obtained in the horizontal long, vertical long, and short axis views. The patient exercised on a Alexandr protocol for 6 minutes and 30 seconds completing Stage II and 30 seconds of Stage III achieving a peak heart rate of 160 bpm (101% predicted maximal heart rate) with a peak blood pressure 154/78 mmHg and a peak MET capacity of 8 METs. The patient was injected with 32.4 mCi of technetium 99m Cardiolite and subsequently stress SPECT Cardiolite nuclear imaging was obtained in the horizontal long, vertical long, and short axis views. A gated Cardiolite study at peak stress was obtained. Interpretation: Rest and stress SPECT Cardiolite nuclear imaging status post realignment, normalization, and attenuation correction, demonstrates demonstrate a small area of diminished tracer uptake in the distal inferior/inferoapical segments status post stress. There is end systolic thickening and brightening. The gated Cardiolite study demonstrates myocardial thickening and inward wall motion. The reported LVEF is 77%. Impression: 1. Rest and stress SPECT Cardiolite nuclear imaging demonstrate myocardial perfusion changes potentially compatible with a small area of stress-induced myocardial ischemia in portions of the distal inferior/inferoapical segments although an element of shifting soft tissue attenuation/artifact cannot necessarily be excluded. 2. The gated Cardiolite study reports an LVEF of 77-%. The patient's case was discussed reviewed. The recommendation was made for further evaluation with diagnostic cardiac catheterization. The procedure and risk were discussed with the patient. He was agreeable to this approach. Assessment & Plan Addt'l Comments I have re-examined the patient. There are no clinical changes since date of exam.
--- NOTE | 2020-12-03 09:12 | CL.D_ITS ---
Patient Name: WOODY FAM Study Date: 12/03/2020 Performing: Cash Murguia MD Ht: 72.83 inches 185 cm : 1955 Wt: 185.19 lbs 84 kg Age: 64 Gender: male BSA: 2.08 PROCEDURE(S) PERFORMED [id number] CLINICAL PROFILE AND INDICATIONS Indications: Worsening Angina, Suspected CAD Heart Failure: None Stress/Imaging Date: 11/13/2020tress Test with SPECT MPI: Positive Intermediate Risk Angina Classification Anginal Classification w/in 2 Weeks: CCS III CAD Presentations: Stable angina. CONCLUSIONS Normal coronary arteries RECOMMENDATIONS Risk factor modification Medical therapy DESCRIPTION OF PROCEDURE The patient arrived to the procedure lab. The risks and benefits of the procedure as well as a full d escription of our services here and current unavailability of surgical backup were fully explained to the patient and/or their significant other prior to the catheterization. The Timeout was completed, verifying the correct patient and procedure. The patient's procedural site was prepped and draped in the usual fashion. Local anesthetic was given subcutaneously to right radial region with Lidocaine 2% . Using a modified Seldinger technique, arterial access was obtained via the right radial artery, a 6 Fr sheath was inserted. Left Coronary Artery selective angiography was performed in multiple views u sing a 5 Fr. JL4 catheter. Right Coronary Artery selective angiography was then performed in multiple views using a 5 Fr. JR 4 catheter.The arterial sheath was pulled and a TR Band was applied for hemos tasis CORONARY ANGIOGRAPHY DOMINANCE: Right Dominant LEFT HEART ASSESSMENT Left Ventricular Ejection Fraction: Not assessed LEFT MAIN: Angiographically normal LEFT ANTERIOR DESCENDING ARTERY: Angiographically normal CIRCUMFLEX ARTERY: Angiographically normal RIGHT CORONARY ARTERY: Angiographically normal COMPLICATIONS No Complications PROCEDURE MEDICATIONS Fentanyl 50 mcg IV Versed 1 mg IV Oxygen: 2 L/min via nasal cannula Heparin given IA 12/03/2020 08:39:33 Verapamil 2.5mg, Ntg 100mcgs, 3000 units of Heparin given IA 12/03/2020 08:39:33 SUMMARY OF HEMODYNAMIC DATA Time AIR REST ECG 07:18:38 AO 112/67 (89) SA 08:42:19 Signed By Cash Murguia MD On 12/03/2020 09:12:18 Cash Murguia MD
== END 2020-12-03 10:56 | disposition home or self-care (01) ==
PROVIDERS: PCP Family Medicine; Referring Provider Internal Medicine Cardiovascular Disease; Visit Provider Internal Medicine Cardiovascular Disease
DX: I47.1 Supraventricular tachycardia (principal); I20.8 Other forms of angina pectoris; I10 Essential (primary) hypertension; E78.5 Hyperlipidemia, unspecified; R07.89 Other chest pain; R00.2 Palpitations
CPT/HCPCS: 36415; 80048; 85027; 85610; 85730; 93454; 99152; 99153; J7040; Q9967; C1769; C1894

== ENCOUNTER → 2021-11-02 | Outpatient (CLI) | payer OTHER, SELFPAY ==
[2021-11-02 10:25] LABS: Anion Gap 7 (5-15); BUN 17 mg/dL (7-18); BUN/Creat Ratio 12.7 RATIO (10-20); Calcium,Total 8.9 mg/dL (8.5-10.1); Chloride 106 mmol/L (98-107); Cholesterol 167 mg/dL (200); Creatinine, Serum 1.34 mg/dL (0.70-1.30); EST Glomerular Filtration Rate 57 mL/min (>60); Est Glom Filt Rate - Afr Amer 69 mL/min (>60); Glucose 96 mg/dL (74-106); High Density Lipoprotein 43 mg/dL; PSA,Total - Annual Screen 2.88 ng/mL (0.00-4.00); Potassium 3.8 mmol/L (3.5-5.1); Sodium Level 140 mmol/L (136-145); Triglycerides 203 mg/dL; Uric Acid 6.9 mg/dL (3.5-7.2); Very Low Density Lipoprotein 41 mg/dL (5-40)
== END | disposition home or self-care (01) ==
LOC: MTLAB 08:13
PROVIDERS: PCP Family Medicine; Referring Provider Family Medicine; Visit Provider Family Medicine
DX: I10 Essential (primary) hypertension (principal); Z12.5 Encounter for screening for malignant neoplasm of prostate; M10.9 Gout, unspecified
CPT/HCPCS: 36415; 80048; 80061; 84153; 84550; G0103

== ENCOUNTER 2022-03-06 12:00 | Emergency (ER) | payer MEDICARE, OTHER, SELFPAY ==
[2022-03-06 12:01] VITALS: BP 133/86; PULSE 90; RESP 16; TEMP 36.7; O2SAT 100; BMI 23.1
--- NOTE | 2022-03-06 12:35 | CT_ITS ---
HISTORY: trauma, fall onto bottom, low back pain, buttock/tailbone pain. TECHNIQUE: Routine noncontrast bone CT protocol was performed of the pelvis. 2-D reformats were performed by the technologist. A radiation dose optimization technique was used for this scan. COMPARISON: 02/22/2018. FINDINGS: BONES:Refer to CT lumbar spine regarding L3 and L4 compression fractures. No acute pelvic or hip fracture identified. Mild generalized osteopenia. JOINTS: No dislocation.Mild degenerative changes. SOFT TISSUES: Fat-containing inguinal hernias. No fluid collections identified. PELVIC CONTENTS: Colonic diverticulosis without perisigmoid inflammation. Small prostate calcifications. No significant free fluid in the pelvis. CT/Pelvis without IV Contrast IMPRESSION: No evidence of acute pelvic fracture or dislocation. L3 and L4 compression fractures. Electronically Signed: Nuzhat Carl MD at 13:35 EST ,
--- NOTE | 2022-03-06 12:35 | CT_ITS ---
HISTORY: trauma, fall onto bottom, low back pain, buttock/tailbone pain. TECHNIQUE: Helically acquired images were obtained of the lumbar spine. 2D reformats were reviewed. A radiation dose optimization technique was used for this scan. IV Contrast dosage and agent: None.422 images. COMPARISON: 02/22/2018. FINDINGS: VERTEBRAE: For the purposes of this report, the lowest intervertebral disc space is designated as L5-S1 with L5 noted as a transitional vertebra. Acute compression fractures of L3 and L4 with approximately 30% loss of height and minimal retropulsion into the spinal canal resulting in mild central canal stenosis. Posterior elements intact. Generalized osteopenia noted. ALIGNMENT: No significant anterior or posterior subluxation. INTERVERTEBRAL DISCS: Preservation of disc heights. SOFT TISSUES: Mild paraspinal edema at the fracture sites. CT/Spine Lumbar without Contrast IMPRESSION: Mild acute compression fractures of L3 and L4. Electronically Signed: Nuzhat Carl MD at 13:32 EST ,
--- NOTE | 2022-03-06 12:38 | ED.VIS.FALL ---
HPI HPI - Fall History of Present Illness Chief Complaint: Fall Informant: patient Narrative Narrative: 66-year-old male states that 2 days ago he was climbing out of his deer stand when he fell he notes that he fell approximately 5 feet off the ladder into a sitting position and then onto his back. He notes pain in his coccyx and in the right pelvis. He denies any radicular symptoms. No blood in the stool or in the urine. States the area is not particularly sore to touch but it is to move. No nausea vomiting. PFSH PFSH Medical History Essential hypertension Hyperlipidemia IBS (irritable bowel syndrome) Home Medications amlodipine 5 mg tablet 5 mg PO DAILY 06/15/19 [History Last Taken 12/03/20] olmesartan 40 mg tablet 40 mg PO DAILY 10/31/20 [History Last Taken Unknown] aspirin 81 mg tablet,delayed release (Adult Low Dose Aspirin) 81 mg PO DAILY 11/17/20 [History Last Taken 12/03/20] L. acidophilus 5 mg-digestive enzymes combo no.5 250 mg capsule See Rx Instructions PO .COMPLEX #90 caps 12/31/20 [Rx Last Taken Unknown] doxycycline hyclate 100 mg capsule 100 mg PO BID #60 caps 12/31/20 [Rx Last Taken Unknown] Allergy/AdvReac Type Severity Reaction Status Date / Time lisinopril AdvReac Severe Unknown Verified 03/06/22 12:00 Family History Father CVA (cerebral vascular accident) Mother CAD (coronary artery disease) Hypertension Surgical History History of hernia repair History of left heart catheterization (LHC) (~12/03/20) History of vitrectomy Social History (Updated 03/06/22 @ 12:[address] Ron Vivar DO) current gender identity: male Smoking Status: Never smoker ROS ROS ED Constitutional Constitutional ED: Denies chills or weight loss Eyes Eyes: Denies change in vision or diplopia ENT ENT ED: Denies ear pain, rhinorrhea or sore throat Cardiovascular Cardiovascular: Denies chest pain, orthopnea, palpitations or racing heartbeat Respiratory/Chest Respiratory/Chest: Denies cough, dyspnea or orthopnea Gastrointestinal Gastrointestinal: Denies abdominal pain, diarrhea, nausea or vomiting Genitourinary Genitourinary ED: Denies dysuria, hematuria or urinary frequency Musculoskeletal Musculoskeletal: Reports back pain; Denies arthralgias or myalgias Integumentary Denies abscess or rash Neurologic Neurologic: Denies headache(s) or weakness Psychiatric Psychiatric: Denies anxiety, depression, suicidal ideation or suicidal thoughts Endocrine Endocrinology: Denies polydipsia, polyphagia or polyuria Allergic/Immunologic Allergic/Immunologic ED: Denies mouth swelling, tongue swelling or urticaria EXAM Physical Exam Const Vital Signs: 03/06/22 12:01 03/06/22 13:35 Temperature 98.1 F Temperature Source Temporal Pulse Rate 90 Respiratory Rate 16 Respiratory Effort Normal Non-Labored Respiratory Depth Normal Respiratory Pattern Normal Blood Pressure 133/86 H Blood Pressure Mean 101 Pulse Ox 100 97 Oxygen Delivery Method Room Air Room Air Positive well nourished and well developed General Appearance ED: well developed HEENT Reports normocephalic, head/scalp atraumatic and moist mucous membranes Eyes PERRL and EOMs intact bilaterally Neck no lymphadenopathy, supple and no JVD Resp normal respiratory effort and clear to auscultation bilaterally Cardio regular rate, regular rhythm and no murmurs GI normal to inspection, nondistended, normoactive bowel sounds and non-tender Palpation: soft Back/Spine no CVA tenderness Back/Spine Narrative: Patient with painful range of motion. Tenderness to palpation over the right SI joint. Extremity normal to inspection General Extremety ED: Negative for edema General Extremity: Negative for edema Neuro oriented x3 and CN's II-XII intact bilaterally Neuro Narrative: Normal patellar and Achilles reflex bilaterally Sensorium / Orientation: alert Motor Exam: strength 5/5 throughout Psych mental status grossly normal Mood & Affect: Negative for depressed or tearful Skin no rashes or lesions noted and no wounds MDM MDM MDM Narrative Medical decision making narrative: CT of the pelvis does not demonstrate any pelvic fracture. CT lumbar spine demonstrates acute compression fractures of L3 and L4. Patient declines any pain medication. The fractures appear stable. I will refer him to spine surgery. Radiography Diagnostic Testing: Clinical Impression(s) from Imaging Studies Lumbar Spine CT 03/06/22 12:35 IMPRESSION: Mild acute compression fractures of L3 and L4. Electronically Signed: Nuzhat Carl MD at 13:32 EST , Pelvis CT 03/06/22 12:35 IMPRESSION: No evidence of acute pelvic fracture or dislocation. L3 and L4 compression fractures. Electronically Signed: Nuzhat Carl MD at 13:35 EST , Discharge Plan Triage Chief Complaint: Fall ED Provider: Ron Vivar Dx/Rx/DC Orders Clinical Impression: Fall, Closed compression fracture of L3 vertebra, Closed compression fracture of L4 vertebra, Coccygeal contusion Instructions: Compression Fx Prescriptions: No Action olmesartan 40 mg tablet 40 mg PO DAILY doxycycline hyclate 100 mg capsule 100 mg PO BID Qty: 60 0RF Rx Instructions: One cap by mouth twice a day for 30 days L. acidophilus-dig enz cmb 5 5-250 mg capsule See Rx Instructions PO .COMPLEX Qty: 90 1RF Rx Instructions: Take one capsule by mouth before meals PO Before meals; Take one capsule by mouth before meals amlodipine 5 MG tablet 5 mg PO DAILY aspirin [Adult Low Dose Aspirin] 81 mg tablet,delayed release (DR/EC) 81 mg PO DAILY Primary Care Provider: Terrance Horn Referrals: Terrance Horn MD [Primary Care Provider] - Marcell Driver DO [Med Staff - Active Staff] - 1 Week Disposition Disposition: Home, Self Care
[2022-03-06 13:35] VITALS: O2SAT 97
[2022-03-06 14:38] VITALS: PULSE 70; RESP 16; O2SAT 98
== END 2022-03-06 14:40 | disposition home or self-care (01) ==
PROVIDERS: Emergency Provider Emergency Medicine; PCP Family Medicine; Visit Provider Emergency Medicine
DX: M48.56XA Collapsed vertebra, not elsewhere classified, lumbar region, initial encounter for fracture (principal); S30.0XXA Contusion of lower back and pelvis, initial encounter; E78.5 Hyperlipidemia, unspecified; I10 Essential (primary) hypertension; W11.XXXA Fall on and from ladder, initial encounter
CPT/HCPCS: 72131; 72192; 99282

== ENCOUNTER → 2022-12-02 | Outpatient (CLI) | payer MEDICARE, OTHER, SELFPAY ==
[2022-12-02 18:16] LABS: Hemoglobin A1c 5.7 % (3.8-5.6); Microalbumin,Random Urine 5.5 mg/L (NO RANGE EST.)
[2022-12-02 18:27] LABS: ALB/GLOB Ratio 1.2 RATIO (0.9-2.4); AST(SGOT) 17 U/L (15-37); Alanine Aminotransfer ALT/SGPT 21 U/L (16-61); Albumin, Serum 3.8 g/dL (3.2-5.0); Alkaline Phosphatase 90 U/L (45-117); Anion Gap 7 (5-15); BUN 17 mg/dL (7-18); Calcium,Total 8.8 mg/dL (8.5-10.1); Chloride 107 mmol/L (98-107); Cholesterol 166 mg/dL (200); Creatinine, Serum 1.21 mg/dL (0.70-1.30); EST Glomerular Filtration Rate 64 mL/min (>60); Est Glom Filt Rate - Afr Amer 77 mL/min (>60); Globulin 3.3 g/dL (2.2-4.2); Glucose 93 mg/dL (74-106); High Density Lipoprotein 44 mg/dL; PSA,Total - Annual Screen 2.35 ng/mL (0.00-4.00); Potassium 3.6 mmol/L (3.5-5.1); Protein, Total 7.1 g/dL (6.4-8.2); Sodium Level 140 mmol/L (136-145); Triglycerides 191 mg/dL; Very Low Density Lipoprotein 38 mg/dL (5-40)
== END | disposition home or self-care (01) ==
LOC: MTLAB 16:55
PROVIDERS: PCP Family Medicine; Referring Provider Family Medicine; Visit Provider Family Medicine
DX: Z00.00 Encounter for general adult medical examination without abnormal findings (principal); Z12.5 Encounter for screening for malignant neoplasm of prostate; E78.5 Hyperlipidemia, unspecified; R73.01 Impaired fasting glucose
CPT/HCPCS: 36415; 80053; 80061; 82043; 83036; 84153; G0103

== ENCOUNTER → 2022-12-09 | Outpatient (CLI) | payer MEDICARE, OTHER, SELFPAY ==
--- NOTE | 2022-12-09 10:01 | CDU_ITS ---
Reason For Study: Disorder of Arteries Rt. Velocities/BP Lt. Velocities/BP Prox CCA 68.6/16.6 cm/sec. Prox CCA 96.1/24.8 cm/sec. Mid CCA 79.8/19.3 cm/sec. Mid CCA 72.1/20.4 cm/sec. Dist CCA 64.4/24.8 cm/sec. Dist CCA 72.1/19.3 cm/sec. Prox ICA 53.5/16.6 cm/sec. Prox ICA 53.7/17.1 cm/sec. Mid ICA 66.7/31.7 cm/sec. Mid ICA 73.3/18.5 cm/sec. Dist ICA 49.2/21.1 cm/sec. Dist ICA 79.8/34.7 cm/sec. Rt. ICA/CCA = 0.8. Lt. ICA/CCA = 1.1. Prox ECA 81.5/14.5 cm/sec. Prox ECA 118.0/23.0 cm/sec. Rt. Vert. 40.3/16.1 cm/sec. Lt. Vert. 21.1/6.9 cm/sec. Right Extracranial There is intimal thickening but no significant atherosclerotic plaque noted in the right common carotid artery. There is intimal thickening but no significant atherosclerotic plaque noted in the right internal carotid artery. There is intimal thickening but no significant atherosclerotic plaque noted in the right external carotid artery. Antegrade flow is noted in the right vertebral artery. Left Extracranial There is homogeneous, smooth atherosclerotic plaque noted in the left common carotid artery. There is heterogeneous, irregular atherosclerotic plaque noted in the left internal carotid artery. There is intimal thickening but no significant atherosclerotic plaque noted in the left external carotid artery. Antegrade flow is noted in the left vertebral artery. Procedure Carotid Duplex [address]13. This is a Carotid Duplex examination using B-mode, color flow and specral Doppler. The exam was diagnostic. Exam performed in department. VL/Carotid Duplex Ultrasound Interpretation Summary No significant atherosclerotic plaque or stenosis noted in the right internal c arotid artery. Mild (<50%) stenosis left extracranial internal carotid. Flow within the vertebral a rteries is antegrade bilaterally. Ordering Physician: Terrance Horn Referring Physician: Terrance Horn Performed By: Armen Zuleta RVT
== END | disposition home or self-care (01) ==
LOC: CVS 09:59
PROVIDERS: PCP Family Medicine; Referring Provider Family Medicine; Visit Provider Family Medicine
DX: I65.22 Occlusion and stenosis of left carotid artery (principal)
CPT/HCPCS: 93880

== ENCOUNTER 2023-01-04 07:51 | Day surgery (SDC) | payer MEDICARE, OTHER, SELFPAY ==
[2023-01-04 08:26] VITALS: BP 119/72; PULSE 72; RESP 12; TEMP 36.3; O2SAT 100; BMI 23.8
[2023-01-04] MEDS: Lactated Ringers 1,000 ML 15 ML IV (08:26)
--- NOTE | 2023-01-04 08:43 | HP.PCM_ITS ---
HPI - General HPI Narrative WOODY FAM, is a 67 M who presents for screening colonoscopy. Patient had a flexible sigmoidoscopy at age 51. He denies abdominal pain or blood in the stool. He is not on any blood thinners. He has no family history of colon cancer. [facility] Medical History (Updated 12/31/22 @ 10:22 by Camille Ugarte) Cardiology follow-up encounter Essential hypertension Gastric reflux History of echocardiogram History of irregular heartbeat History of stress test Hx of sigmoidoscopy Hyperlipidemia IBS (irritable bowel syndrome) Injury of back Left-sided carotid artery disease Non-smoker Wears contact lenses Wears glasses Home Medications amlodipine 5 mg tablet 5 mg PO DAILY 06/15/19 [History Last Taken 01/04/23] olmesartan 40 mg tablet 40 mg PO DAILY 10/31/20 [History Last Taken 01/04/23] sildenafil 50 mg tablet 50 mg PO DAILY PRN sexual activity 12/16/22 [History Last Taken Unknown] fexofenadine 180 mg tablet (Kathi Allergy) 180 mg PO DAILY PRN ALLERGIES 12/31/22 [History Last Taken Unknown] Allergy/AdvReac Type Severity Reaction Status Date / Time lisinopril AdvReac Severe COUGH Verified 01/04/23 08:18 Family History Father CVA (cerebral vascular accident) Mother CAD (coronary artery disease) Hypertension Surgical History (Updated 12/16/22 @ 09:04 by Allison Courtney) History of hernia repair History of left heart catheterization (LHC) (~12/03/20) History of tonsillectomy and adenoidectomy History of vitrectomy Hx of cataract extraction Social History (Updated 12/16/22 @ 09:16 by Allison Courtney) household members: other details: With adult Son current occupational status: retired 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 [employer] leisure activities: exercise Smoking Status: Never smoker what type of physical activity do you participate in: walking and bicycling frequency: daily duration: 30-45 minutes/day Past Medical/Surgical History Planned Operation Planned Operative Procedure/s: CSCOPE OA Previous Hospitalizations/Surgeries HX Hospitalizations: No Any Problems With Anesthesia: No You/Your Family Experience Fever (Hyperthermia) With Anes: No Cholinesterase deficiency: No Cardiovascular Hx Chest Pain within Last 2 months: No Hx of Irregular Heartbeat and/or Afib: No Hx Heart Attack: No Hx Congestive Heart Failure: No Hx Hypertension: Yes (CONTROLLED WITH MEDS) Hx Pacemaker: No Hx Cardiac Surgery/Stents/Etc.: No Respiratory Hx Chronic Obstructive Pulmonary Disease (COPD): No Hx Asthma: No Hx Emphysema: No Hx Sleep Apnea: No Hx Respiratory Tract Infection/Cold (presently): No Do You Snore Loudly (louder than talking or can be heard): No Do You Often Feel Tired/ Fatigued/ Sleepy Dring Daytime?: No Has Anyone Observed You Stop Breathing During Sleep?: No Result (for STOP score): Negative Hx Smoking: No Smoking Status: Never smoker Gastrointestinal Hx Gastroesophageal Reflux: Yes Controlled With Meds: Yes Hx Ulcer: No Neurological Hx Seizures: No Hx Headaches: No Does patient have nerve stimulator: No Blood Disorder Hx Anemia: No Reproduction : No Genitourinary Hx Dialysis: No Musculoskeletal Hx Arthritis: Yes Hx Rheumatoid Arthritis: No Endocrine Hx Diabetes: No Thyroid Disease: No Psycho/Social Hx Depression: No Hx Dementia: No Miscellaneous Hx Cancer: No Recent Exposure to Contagious Disease: No Allergies lisinopril Adverse Reaction (Severe, Verified 01/04/23 08:18) COUGH Discharge Is Pt Admitted From a Skilled Nursing, or a Senior Living: No After D/C, Where Do you Plan to Go: Return Home From the [facility] History Number of Risk Factors: 1 Vital Signs Vital Signs Vital Signs: 01/04/23 08:26 01/04/23 08:26 Temperature 97.3 F L Temperature Source Temporal Pulse Rate 72 Respiratory Rate 12 Respiratory Pattern Normal Blood Pressure 119/72 Blood Pressure Mean 87 Blood Pressure Source Monitor Blood Pressure Position Semi-Fowlers Blood Pressure Location Left Arm Pulse Ox 100 Oxygen Delivery Method Room Air Weight Weight: 180 lb 12.465 oz Body Mass Index (BMI) 23.8 Physical Exam Const alert and oriented x3 HEENT normocephalic Eyes PERRL Resp normal respiratory effort and normal air movement Cardio regular rate and regular rhythm GI soft to palpation, non-tender and non-distended Extremity normal to inspection Assessment & Plan Assessment/Plan (1) Encounter for screening for malignant neoplasm of colon: PLAN: I explained endoscopy in detail to the patient. I explained the risks including but not limited to stroke or heart attack with anesthesia, perforation of the GI tract, bleeding, infection. I explained that any of these could necessitate further emergency surgery. The patient understands and all questions were answered sufficiently. The patient wishes to proceed with procedure. Zak Kern MD Pager: [facility] [address] [place] [address] [address] [place] [address] Office: Surgery Risks - Colonoscopy Risks Include but are not Limited To: Risks include but are not limited to: Bleeding, perforation requiring further surgery, inability to complete colonoscopy requiring barium enema.
--- NOTE | 2023-01-04 09:00 | COLBX_PTH ---
PATIENT: WOODY FAM LOC: EN U#:[id number] AGE/SX: 67/M ROOM: RE01/04/[address]: Dr. Zak Kern MD : 1955 BED: DIS: 01/04/2023 SPEC #: [id number] RECD: 01/04/23 12:08 STATUS: TANA SOTOHakeem #: [id number] ELIANA: 01/04/23 09:[address]: Zak Kern DEPT: SURGICAL PATHOLOGY RECD BY: Chayito Balderas ENTERED: 01/04/23 12:45 SP TYPE: COLON BX OTHR DR: Dr. Humphrey Horn MD Tissues: Cecum, NOS Procedures: Surgery Specimen Level IV HEADER OPERATION: Colonoscopy - open access with polypectomy PRE-OP DIAGNOSIS: Screening TISSUE SUBMITTED: Cecum polyp MICROSCOPIC DIAGNOSIS Cecum polyp, polypectomy: Tubular adenoma. MARY:hua 01/05/2023 MICROSCOPIC DESCRIPTION Slides are reviewed. GROSS DESCRIPTION Received in fixative is one container labeled with the patient's name and designated cecum polyp. The specimen consists of a blackwell-pink polyp measuring 0.9 x 0.5 x 0.3 cm. The specimen is totally submitted in one cassette. / SJ:hua 01/04/2023 TC:1 CPT: 00495
--- NOTE | 2023-01-04 09:14 | OP.COLON_ITS ---
Patient Name: Alfonso Chowdhury Procedure Date: 01/04/2023 8:44 AM Date of : 1955 Age: 67 Procedure: Colonoscopy Indications: Screening for colorectal malignant neoplasm Providers: Zak Kern MD Referring MD: Terrance Horn Medicines: Monitored Anesthesia Care Patient Profile: This is a 67 year old male. Refer to note in patient chart for documentation of history and physical. Last Colonoscopy: more than 10 years ago. Complications: No immediate complications. Estimated blood loss: Minimal. Procedure: Pre-Anesthesia Assessment: - Prior to the procedure, a History and Physical was performed, and patient medications and allergies were reviewed. The patient's tolerance of previous anesthesia was also reviewed. The risks and benefits of the procedure and the sedation options and risks were discussed with the patient. All questions were answered, and informed consent was obtained. Prior Anticoagulants: The patient has taken no anticoagulant or antiplatelet agents. After reviewing the risks and benefits, the patient was deemed in satisfactory condition to undergo the procedure. After I obtained informed consent, the scope was passed under direct vision. Throughout the procedure, the patient's blood pressure, pulse, and oxygen saturations were monitored continuously. The Colonoscope was introduced through the anus and advanced to the cecum, identified by appendiceal orifice and ileocecal valve. The colonoscopy was performed without difficulty. The patient tolerated the procedure well. The quality of the bowel preparation was good. The ileocecal valve, appendiceal orifice, and rectum were photographed. Scope In: 8:57:15 AM Scope Withdrawal Time 0 hours 4 minutes 30 seconds Scope Out: 9:09:18 AM Total Procedure Duration Time 0 hours 12 minutes 3 seconds Findings: A small polyp was found in the cecum. The polyp was removed with a hot snare. Resection and retrieval were complete. The entire examined colon appeared normal on direct and retroflexion views. Impression: - One small polyp in the cecum, removed with a hot snare. Resected and retrieved. - The entire examined colon is normal on direct and retroflexion views. Recommendation: - Discharge patient to home. - Resume previous diet. - Continue present medications. - Await pathology results. - Repeat colonoscopy in 5 years for surveillance. Procedure Code(s): --- Professional --- 11838, 33, Colonoscopy, flexible; with removal of tumor(s), polyp(s), or other lesion(s) by snare technique Diagnosis Code(s): --- Professional --- Z12.11, Encounter for screening for malignant neoplasm of colon D12.0, Benign neoplasm of cecum CPT copyright 2021 [employer]. All rights reserved. The codes documented in this report are preliminary and upon clinic lpn review may be revised to meet current compliance requirements. Zak Kern MD 01/04/2023 9:13:53 AM This report has been signed electronically. Number of Addenda: 0 Note Initiated On: 01/04/2023 8:44 AM
--- NOTE | 2023-01-04 09:14 | OP.CCLET_ITS ---
01/04/2023 Terrance Horn [address] [place] [address] Re : Colonoscopy procedure for Alfonso Chowdhury Dear Dr. Horn This procedure was performed on Wednesday, January 04, 2023. My impressions and recommendations are as follows: Impressions : - One small polyp in the cecum, removed with a hot snare. Resected and retrieved. - The entire examined colon is normal on direct and retroflexion views. Recommendations : - Discharge patient to home. - Resume previous diet. - Continue present medications. - Await pathology results. - Repeat colonoscopy in 5 years for surveillance. My findings are described in the full procedure note, which is enclosed. If I can be of further assistance, please feel free to contact me at Doctor phone number(s): , Work: . Sincerely, Zak Kern MD 01/04/2023 9:13:53 AM This report has been signed electronically.
[2023-01-04 09:18] VITALS: BP 119/72; BP 84/55; PULSE 16; RESP 16; TEMP 36.3; O2SAT 94
[2023-01-04 09:20] VITALS: BP 119/72; BP 84/55; PULSE 72; RESP 16; O2SAT 97
[2023-01-04 09:25] VITALS: BP 119/72; BP 90/68; PULSE 69; RESP 16; O2SAT 95
[2023-01-04 09:30] VITALS: BP 119/72; BP 96/62; PULSE 63; RESP 16; TEMP 36.4; O2SAT 96
[2023-01-04 09:42] VITALS: BP 119/72
== END 2023-01-04 09:56 | disposition home or self-care (01) ==
LOC: EN 07:52 → AC 07:54
PROVIDERS: PCP Family Medicine; Referring Provider Family Medicine; Visit Provider Surgery
PROC: 0DJD8ZZ Inspection of Lower Intestinal Tract, Via Natural or Artificial Opening Endoscopic (ICD-10-PCS; CPT 45378; principal; 2023-01-04 08:55)
DX: Z12.11 Encounter for screening for malignant neoplasm of colon (principal); D12.0 Benign neoplasm of cecum; E78.5 Hyperlipidemia, unspecified; I10 Essential (primary) hypertension; Z79.899 Other long term (current) drug therapy
CPT/HCPCS: 45385; 88305; J7120

== ENCOUNTER → 2024-01-05 | Outpatient (CLI) | payer MEDICARE, OTHER, SELFPAY ==
[2024-01-05 11:15] LABS: AST(SGOT) 16 U/L (15-37); Alanine Aminotransfer ALT/SGPT 27 U/L (16-61); Albumin, Serum 3.6 g/dL (3.2-5.0); Alkaline Phosphatase 86 U/L (45-117); Anion Gap 6 (5-15); BUN 17 mg/dL (7-18); BUN/Creat Ratio 12.1 RATIO (10-20); Calcium,Total 9.5 mg/dL (8.5-10.1); Chloride 104 mmol/L (98-107); Cholesterol 200 mg/dL (200); Creatinine, Serum 1.41 mg/dL (0.70-1.30); EST Glomerular Filtration Rate 53 mL/min (>60); Est Glom Filt Rate - Afr Amer 65 mL/min (>60); Globulin 3.6 g/dL (2.2-4.2); Glucose 108 mg/dL (74-106); High Density Lipoprotein 46 mg/dL; PSA,Total - Annual Screen 2.33 ng/mL (0.00-4.00); Potassium 4.3 mmol/L (3.5-5.1); Protein, Total 7.2 g/dL (6.4-8.2); Sodium Level 135 mmol/L (136-145); Triglycerides 203 mg/dL; Very Low Density Lipoprotein 41 mg/dL (5-40)
== END | disposition home or self-care (01) ==
LOC: MFPLAB 08:34
PROVIDERS: PCP Family Medicine; Visit Provider Family Medicine
DX: I10 Essential (primary) hypertension (principal); M10.9 Gout, unspecified; Z12.5 Encounter for screening for malignant neoplasm of prostate
CPT/HCPCS: 36415; 80053; 80061; 84153; 84550; G0103

== ENCOUNTER → 2025-01-07 | Outpatient (CLI) | payer MEDICARE, OTHER, SELFPAY ==
[2025-01-07 15:23] LABS: Hematocrit 47.6 % (40-54); Hemoglobin 15.1 g/dL (13.0-16.5); Mean Corp Hgb Conc 31.7 g/dL (32-36); Mean Corpuscular Volume 88.6 fL (80-94); Mean Platelet Vol. 10.5 fl (6.2-12.0); Platelet Count 240 K/mm3 (150-450); RBC Distribution Width CV 12.5 % (11.6-14.6); RBC Distribution Width SD 40.6 fl (35.1-43.9); Red Blood Count 5.37 M/mm3 (4.6-6.2); White Blood Count 7.2 K/mm3 (4.4-11.0)
[2025-01-07 16:35] LABS: Anion Gap 14 (5-15); BUN 14 mg/dL (4-19); BUN/Creat Ratio 9.9 RATIO (10-20); Calcium,Total 9.4 mg/dL (7.6-11.0); Carbon Dioxide 22.6 mmol/L (21.0-32.0); Chloride 102 mmol/L (98-108); Glucose 103 mg/dL (70-99); Potassium 4.5 mmol/L (3.3-5.1); Uric Acid 6.6 mg/dL (3.5-7.2); Vitamin D,25 Hydroxy 41.2 ng/mL (30-100)
== END | disposition home or self-care (01) ==
LOC: MFPLAB 12:24
PROVIDERS: PCP Family Medicine; Visit Provider Family Medicine
DX: I10 Essential (primary) hypertension (principal); N28.9 Disorder of kidney and ureter, unspecified
CPT/HCPCS: 36415; 80048; 82306; 84550; 85027